=== PATIENT | male | born 1990 | race Caucasian/White ===

== ENCOUNTER 2019-03-31 02:24 | Emergency (ER) | payer MEDICAID ==
[~2019-03-31] VITALS: Ht 152.4 cm; Wt 63.5 kg
[2019-03-31 02:28] VITALS: BP_SYST 161
--- NOTE | 2019-03-31 02:35 | NUR ---
Patient to ER bed 4 to gown for evaluation. Side rails up. Report given to jada marsh.
--- NOTE | 2019-03-31 02:40 | NUR ---
Pt is a 24 y/o transgender male who presents to the ER w/ new onset epigastric ab pain that started around 11 pm. Pain 03/02 as of right now. Pt states that the pain is a burning sensation that radiates to his back. Pt states that he has had this type of pain before and it usually goes away on its own. Pt states that there are no changes in bowel habits. Denies fever, chills, SOB. No meds at home. Will cont to monitor pt.
--- NOTE | 2019-03-31 02:40 | NUR ---
Note el in EDM - 03/31/19 at 0422 by ANABELL Pt is a 24 y/o transgender male who presents to the ER w/ new onset epigastric ab pain that started around 11 pm. Pain 10 as of right now. Pt states that the pain is a burning sensation that radiates to his back. Pt states that he has had this type of pain before and it usually goes away on its own. Pt states that there are no changes in bowel habits. Denies fever, chills, SOB. No meds at home. Will cont to monitor pt.
--- NOTE | 2019-03-31 02:45 | NUR ---
ER at bedside examining patient.
[2019-03-31] MEDS ORDERED: FAMOTIDINE PF 20 MG/2 ML VIAL IVP ONE (03:00)
[2019-03-31] MEDS ORDERED: NACL 0.9% 1,000 ML IV ONE (03:00)
[2019-03-31] MEDS ORDERED: ONDANSETRON HCL 4 MG/2 ML VIAL IVP ONE (03:00)
[2019-03-31 03:06] LABS: HEMOGLOBIN 16.6 g/dL (14.0-18.0); MEAN CORPUSCULAR HEMOGLOBIN 30 pg (27-31); MEAN CORPUSCULAR HGB CONC 35 % (32-36); MEAN CORPUSCULAR VOLUME 88 fL (79.0-98.0); PLATELET COUNT (AUTO) 245 K/uL (130-430); RED BLOOD CELL COUNT(AUTO) 5.46 MIL/uL (4.2-6.2); RED CELL DISTRIBUTION WIDTH 12.7 % (9.0-15.0); WHITE BLOOD COUNT (AUTO) 11.1 K/uL (4.8-10.8)
--- NOTE | 2019-03-31 03:08 | NUR ---
# 20 gauge angiocath placed to rt ac. Use of asceptic technique. Opsite placed over site. Blood return noted. Flushed with 10 cc of normal saline. No evidence of infiltration noted. Patient tolerated well.
[2019-03-31 03:20] LABS: CALCIUM 10.3 mg/dL (8.4-11.0); CREATININE 0.92 mg/dL (0.55-1.30); POTASSIUM 3.5 mmol/L (3.5-5.1)
[2019-03-31 03:26] LABS: ALBUMIN 4.2 g/dL (3.4-4.8); TOTAL BILIRUBIN 0.5 mg/dL (0.0-1.0)
[2019-03-31 03:29] LABS: ATYPICAL LYMPHOCYTES % 0 % (0-0); BAND % (MANUAL) 2 % (0-6); BASOPHILS % (MANUAL) 0 % (0-2); EOSINOPHILS % (MANUAL) 28 % (0-7); LYMPHOCYTES % (MANUAL) 23 % (20-46); METAMYELOCYTES % 0 % (0-0); MONOCYTES % (MANUAL) 4 % (0-11); MYELOCYTES % 0 % (0-0)
--- NOTE | 2019-03-31 04:24 | NUR ---
Pt able to ambulate to the bathroom at this time, no signs of acute distress or discomfort noted. Will cont. to monitor.
--- NOTE | 2019-03-31 04:47 | NUR ---
Edilma gallegos in [facility] - 03/31/19 at 0506 by ANABELL NATA Downing at bedside speaking to patient.
--- NOTE | 2019-03-31 04:47 | NUR ---
NATA Downing at bedside speaking to patient.
[2019-03-31 05:01] VITALS: BP_SYST 161
--- NOTE | 2019-03-31 05:01 | NUR ---
Patient given written and verbal discharge instructions and verbalizes understanding. ER MD Dr. Downing discussed with patient the results and treatment provided. Patient in stable condition. ID arm band removed. IV catheter removed intact and dressing applied, no active bleeding. Rx of pepcid and tramadol given. Patient educated on pain management and to follow up with PMD. Pain Scale 0/10. Opportunity for questions provided and answered. Medication side effect fact sheet provided.
== END 2019-03-31 05:01 | disposition home or self-care (01) ==
LOC: SED 02:24
DX: K80.20 Calculus of gallbladder without cholecystitis without obstruction (principal); Z91.048 Other nonmedicinal substance allergy status
CPT/HCPCS: 36415; 76700; 80053; 83690; 85007; 85027; 96361; 96374; 96375; 99284; J2405; J3490; J7030